=== PATIENT | female | born 1945 | race Caucasian/White ===

== ENCOUNTER 2018-02-17 08:36 | Day surgery (SDC) | payer MEDICARE, MEDICAID ==
[2018-02-16 14:55] LABS: BASOPHILS % (AUTO) 0.6 % (0-1); EOSINOPHILS # (AUTO) 0.3 X10'3 (0-0.9); EOSINOPHILS % (AUTO) 3.9 % (0-6); LYMPHOCYTES # (AUTO) 1.4 X10'3 (1.1-4.8); LYMPHOCYTES % (AUTO) 21.4 % (21-51); MEAN CORPUSCULAR HEMOGLOBIN 31.4 PG (27.0-31.0); MEAN CORPUSCULAR HGB CONC 33.9 % (33.0-36.5); MEAN CORPUSCULAR VOLUME 92.5 FL (78-98); MONOCYTES # (AUTO) 0.6 X10'3 (0-0.9); MONOCYTES % (AUTO) 8.7 % (2-12); NEUTROPHILS # (AUTO) 4.3 X10'3 (1.8-7.7); NEUTROPHILS % (AUTO) 65.4 % (42-75); PRE OP HEMATOCRIT 38.8 % (35.0-45.0); PRE OP HEMOGLOBIN 13.2 g/dL (12.0-16.0); PRE OP PLATELET COUNT 276 X10'3 (140-440); RED BLOOD COUNT 4.19 X10'6 (4.20-5.60); RED CELL DISTRIBUTION WIDTH 13.3 % (11.5-14.5)
[2018-02-16 15:05] LABS: PRE OP INR 1.1 INR; PRE OP PROTIME 11.3 SECONDS (9.0-12.0)
[2018-02-16 15:06] LABS: BLOOD UREA NITROGEN 17 MG/DL (7-18); BUN/CREATININE RATIO 14.5 (6.6-38.0); CALCIUM 9.8 MG/DL (8.5-10.1); CHLORIDE 104 MMOL/L (99-107); CREATININE 1.17 MG/DL (0.40-0.90); PRE OP ANION GAP 9 (8-16); PRE OP GLUCOSE 135 MG/DL (70-104); PRE OP POTASSIUM 3.7 MMOL/L (3.4-5.1); PRE OP SODIUM 143 MMOL/L (135-145); TOTAL CARBON DIOXIDE 29.7 MMOL/L (24-32); eGFR 46 ML/MIN
[~2018-02-17] VITALS: Ht 149.9 cm; Wt 179.0 kg
[2018-02-17] VITALS (11 sets, daily range): BP systolic 111–151; BP diastolic 69–86
[~2018-02-17 08:36] MED LIST: ASPI-1265 PO; ATOR40TA PO; FENO134C2 PO; LINA145C PO; LORA-512 PO; NAPR-56 PO
[2018-02-17] MEDS ORDERED: LORazepam 0.5 MG tablet PO PRN (08:55)
[2018-02-17] MEDS ORDERED: diphenhydrAMINE 25mg capsule PO PRN (08:55)
[2018-02-17] MEDS ORDERED: normal saline 1000ml 1,000 ML IV SCH (08:55)
[2018-02-17] MEDS ORDERED: nitroGLYCERIN-Tridil 50MG/D5W 250 ML IV ONE (11:01)
[2018-02-17] MEDS ORDERED: heparin 1,000unit/ml 10ml vial 10 ML ONE (11:02)
[2018-02-17] MEDS ORDERED: LIDOcaine 1%/PF (10mg/ml) 5ml vial ONE (11:02)
[2018-02-17] MEDS ORDERED: fentaNYL/PF 50MCG/1 ML 2ML syringe ONE (11:02)
[2018-02-17] MEDS ORDERED: iohexol 350 MG/ML 50ML vial IV ONE (11:02)
[2018-02-17] MEDS ORDERED: midazolam 2 mg/2 ml injection ONE (11:02)
[2018-02-17] MEDS ORDERED: iohexol 350MG/ML 100ml bottle IV ONE (11:02)
== END 2018-02-17 18:05 | disposition home or self-care (01) ==
LOC: SSTAY O 08:36
PROVIDERS: ATTEND Internal Medicine Cardiovascular Disease
DX: I25.10 Atherosclerotic heart disease of native coronary artery without angina pectoris (principal); E78.5 Hyperlipidemia, unspecified; I10 Essential (primary) hypertension; E11.40 Type 2 diabetes mellitus with diabetic neuropathy, unspecified; M19.90 Unspecified osteoarthritis, unspecified site; Z87.891 Personal history of nicotine dependence; Z78.0 Asymptomatic menopausal state; Z79.82 Long term (current) use of aspirin; Z95.0 Presence of cardiac pacemaker; Z98.890 Other specified postprocedural states; Z88.6 Allergy status to analgesic agent; Z88.0 Allergy status to penicillin; Z88.8 Allergy status to other drugs, medicaments and biological substances; Z98.41 Cataract extraction status, right eye; Z98.42 Cataract extraction status, left eye; Z85.51 Personal history of malignant neoplasm of bladder
CPT/HCPCS: 36415; 80048; 85025; 85610; 85730; 93005; 93458; 99152; 99153; A6257; C1760; C1769; J1644; J2001; J2250; J3010; J3490; J7030; Q0163; Q9967; A4620

== ENCOUNTER 2020-12-12 08:30 | Outpatient (CLI) | payer MEDICARE, MEDICAID ==
[~2020-12-12] VITALS: Ht 149.9 cm; Wt 72.7 kg
[2020-12-12] VITALS (7 sets, daily range): BP systolic 117–149; BP diastolic 71–87
[~2020-12-12 08:30] MED LIST changes: -LINA145C PO
[2020-12-12] MEDS ORDERED: metoprolol tartrate 1mg/ml inj IV PRN (09:55)
[2020-12-12] MEDS ORDERED: aminophylline 250mg/10ml inj. IV PRN (09:55)
[2020-12-12] MEDS ORDERED: normal saline 500ml IV soln 500 ML IV ONE (09:55)
[2020-12-12] MEDS ORDERED: regadenoson 0.4mg/5ml syringe IV ONE (09:55)
[2020-12-12] MEDS ORDERED: nitroGLYCERIN 0.4mg SUBLingual tab SL PRN (09:55)
== END 2020-12-12 23:59 | disposition home or self-care (01) ==
LOC: RAD 08:30
PROVIDERS: ATTEND Internal Medicine Cardiovascular Disease
DX: I25.9 Chronic ischemic heart disease, unspecified (principal); I25.10 Atherosclerotic heart disease of native coronary artery without angina pectoris
CPT/HCPCS: 78452; 93017; A9500; J2785; J7040

== ENCOUNTER 2021-02-27 06:55 | Day surgery (SDC) | payer MEDICARE, MEDICAID ==
[2021-02-26 13:35] LABS: BASOPHILS # (AUTO) 0.1 X10'3 (0-0.2); BASOPHILS % (AUTO) 1.1 % (0-1); EOSINOPHILS # (AUTO) 0.3 X10'3 (0-0.9); HEMATOCRIT 35.5 % (35.0-45.0); HEMOGLOBIN 11.7 g/dl (12.0-16.0); LYMPHOCYTES # (AUTO) 1.2 X10'3 (1.1-4.8); LYMPHOCYTES % (AUTO) 25.5 % (21-51); MEAN PLATELET VOLUME 7.3 FL (7.4-10.4); MONOCYTES # (AUTO) 0.6 X10'3 (0-0.9); MONOCYTES % (AUTO) 11.7 % (2-12); NEUTROPHILS # (AUTO) 2.7 X10'3 (1.8-7.7); NEUTROPHILS % (AUTO) 55.7 % (42-75); PLATELET COUNT 223 X10'3 (140-440); RED BLOOD COUNT 3.78 X10'6 (4.20-5.60); RED CELL DISTRIBUTION WIDTH 13.8 % (11.5-14.5); WHITE BLOOD COUNT 4.9 X10'3 (4.5-11.0)
[2021-02-26 13:40] LABS: ALBUMIN 3.7 G/DL (3.4-5.0); ANION GAP 10 (8-16); BLOOD UREA NITROGEN 20 MG/DL (7-18); CHLORIDE 107 MMOL/L (99-107); CREATININE 1.05 MG/DL (0.40-0.90); GLUCOSE 105 MG/DL (70-104); POTASSIUM 4.3 MMOL/L (3.5-5.1); SODIUM 144 MMOL/L (135-145); eGFR 51 ML/MIN
[2021-02-26 13:45] LABS: PARTIAL THROMBOPLASTIN TIME 27 SECONDS (22-32)
[~2021-02-27] VITALS: Ht 152.4 cm; Wt 73.2 kg
[2021-02-27] VITALS (12 sets, daily range): BP systolic 105–134; BP diastolic 60–81
[2021-02-27] MEDS ORDERED: diphenhydrAMINE 25mg capsule PO PRN (07:15)
[2021-02-27] MEDS ORDERED: LORazepam 0.5 MG tablet PO PRN (07:15)
[2021-02-27] MEDS ORDERED: normal saline 1,000 ML IV SCH (07:15)
[2021-02-27] MEDS ORDERED: METF500T PO (07:21)
[2021-02-27] MEDS ORDERED: nitroGLYCERIN-Tridil 50MG/D5W 250 ML IV ONE (09:06)
[2021-02-27] MEDS ORDERED: midazolam 1 mg/ML 2ml injection ONE (09:06)
[2021-02-27] MEDS ORDERED: fentaNYL/PF 50MCG/1 ML 2ML syringe ONE (09:06)
[2021-02-27] MEDS ORDERED: verapamil 2.5 mg/ml inj IV ONE (09:06)
[2021-02-27] MEDS ORDERED: iohexol 350 MG/ML 50ML vial IV ONE (09:07)
[2021-02-27] MEDS ORDERED: iohexol 350MG/ML 100ml bottle IV ONE (09:07)
[2021-02-27] MEDS ORDERED: heparin 1,000unit/ml 10ml vial 10 ML ONE (09:07)
[2021-02-27] MEDS ORDERED: LIDOcaine 1% (10mg/ml)w/preservative injection 20ml MDV ONE (09:07)
[2021-02-27] MEDS ORDERED: normal saline 1000ml 1,000 ML IV SCH (10:40)
== END 2021-02-27 15:00 | disposition home or self-care (01) ==
LOC: SSTAY O 06:55
PROVIDERS: ATTEND Internal Medicine Cardiovascular Disease
DX: R94.39 Abnormal result of other cardiovascular function study (principal); I25.10 Atherosclerotic heart disease of native coronary artery without angina pectoris; I49.5 Sick sinus syndrome; E11.9 Type 2 diabetes mellitus without complications; I10 Essential (primary) hypertension; E78.5 Hyperlipidemia, unspecified; Z88.8 Allergy status to other drugs, medicaments and biological substances; Z88.6 Allergy status to analgesic agent; Z88.0 Allergy status to penicillin; Z95.0 Presence of cardiac pacemaker; Z85.51 Personal history of malignant neoplasm of bladder; Z98.890 Other specified postprocedural states
CPT/HCPCS: 36415; 80048; 82948; 85025; 85610; 85730; 93005; 93458; C1769; C1894; J1644; J2001; J2250; J3010; J7030; Q0163; Q9967; 76937; 99152; 99153; A4620; A5120; A6258; J3490

== ENCOUNTER 2021-04-18 07:06 | Day surgery (SDC) | payer MEDICARE, MEDICAID ==
[2021-04-17 12:45] LABS: BASOPHILS # (AUTO) 0.1 X10'3 (0-0.2); BASOPHILS % (AUTO) 1.1 % (0-1); EOSINOPHILS # (AUTO) 0.2 X10'3 (0-0.9); EOSINOPHILS % (AUTO) 4.4 % (0-6); HEMATOCRIT 33.4 % (35.0-45.0); HEMOGLOBIN 11.2 g/dl (12.0-16.0); LYMPHOCYTES # (AUTO) 1.3 X10'3 (1.1-4.8); LYMPHOCYTES % (AUTO) 25.9 % (21-51); MEAN CORPUSCULAR HEMOGLOBIN 31.5 PG (27.0-31.0); MEAN CORPUSCULAR HGB CONC 33.5 g/dL (33.0-36.5); MEAN PLATELET VOLUME 7.4 FL (7.4-10.4); MONOCYTES # (AUTO) 0.6 X10'3 (0-0.9); MONOCYTES % (AUTO) 10.8 % (2-12); NEUTROPHILS % (AUTO) 57.8 % (42-75); PLATELET COUNT 239 X10'3 (140-440); RED BLOOD COUNT 3.55 X10'6 (4.20-5.60); RED CELL DISTRIBUTION WIDTH 14.2 % (11.5-14.5); WHITE BLOOD COUNT 5.1 X10'3 (4.5-11.0)
[2021-04-17 12:51] LABS: ALBUMIN 3.6 G/DL (3.4-5.0); ANION GAP 11 (8-16); BLOOD UREA NITROGEN 20 MG/DL (7-18); BUN/CREATININE RATIO 20.6 (6.6-38.0); CALCIUM 8.7 MG/DL (8.5-10.1); CHLORIDE 107 MMOL/L (99-107); CREATININE 0.97 MG/DL (0.40-0.90); GLUCOSE 96 MG/DL (70-104); POTASSIUM 3.9 MMOL/L (3.5-5.1); SODIUM 143 MMOL/L (135-145); TOTAL CARBON DIOXIDE 25.5 MMOL/L (24-32); eGFR 56 ML/MIN
[2021-04-17 12:53] LABS: PARTIAL THROMBOPLASTIN TIME 28 SECONDS (22-32)
[2021-04-18] VITALS (10 sets, daily range): BP systolic 118–154; BP diastolic 66–78
[~2021-04-18] VITALS: Ht 149.9 cm; Wt 71.8 kg
[~2021-04-18 07:06] MED LIST changes: +METF500T PO
[2021-04-18] MEDS ORDERED: LIDOcaine 1% W/epiNEPHrine 1:100,000 20ml vial ONE ×2 (07:47→10:11)
[2021-04-18] MEDS ORDERED: midazolam 1 mg/ML 2ml injection ONE ×2 (07:47→10:11)
[2021-04-18] MEDS ORDERED: fentaNYL/PF 50MCG/1 ML 2ML syringe ONE ×2 (07:48→10:11)
[2021-04-18] MEDS ORDERED: clindamycin-Cleocin 900mg/D5W 50 ML IV ONE (08:00)
[2021-04-18] MEDS ORDERED: LIDOcaine 1% (10mg/ml) 2ml vial ONE (08:19)
[2021-04-18] MEDS ORDERED: LORazepam 0.5 MG tablet PO PRN (08:30)
[2021-04-18] MEDS ORDERED: clindamycin phosphate 150mg/ml inj. ONE (10:10)
[2021-04-18] MEDS ORDERED: clindamycin 600mg/D5W 50ml 50 ML IV ONE (10:10)
[2021-04-18] MEDS ORDERED: HYDROcodone/acetaminophen 5mg/325mg tablet PO PRN (12:50)
[2021-04-18] MEDS ORDERED: HYDROcodone/acetaminophen 10/325mg tab PO PRN (12:50)
== END 2021-04-18 15:30 | disposition home or self-care (01) ==
LOC: SSTAY O 07:06
PROVIDERS: ATTEND Internal Medicine Cardiovascular Disease
DX: Z45.010 Encounter for checking and testing of cardiac pacemaker pulse generator [battery] (principal); I25.10 Atherosclerotic heart disease of native coronary artery without angina pectoris; E11.9 Type 2 diabetes mellitus without complications; E78.5 Hyperlipidemia, unspecified; I10 Essential (primary) hypertension; Z88.0 Allergy status to penicillin; Z88.5 Allergy status to narcotic agent; Z88.8 Allergy status to other drugs, medicaments and biological substances; Z79.82 Long term (current) use of aspirin; Z79.84 Long term (current) use of oral hypoglycemic drugs; Z79.899 Other long term (current) drug therapy; Z79.01 Long term (current) use of anticoagulants
CPT/HCPCS: 33228; 36415; 80048; 82948; 85025; 85610; 85730; 93005; 99152; 99153; C1785; C1894; J2001; J2250; J3010; J3490; A4620; A5120; A6258; A6449

== ENCOUNTER 2022-05-22 12:09 | Emergency (ER) | payer BC, MEDICAID ==
[~2022-05-22] VITALS: Ht 149.9 cm; Wt 65.9 kg
[2022-05-22 12:29] VITALS: BP 113/71
== END 2022-05-22 14:01 | disposition left against medical advice (07) ==
LOC: ER 12:10
DX: H57.10 Ocular pain, unspecified eye (principal); Z53.21 Procedure and treatment not carried out due to patient leaving prior to being seen by health care provider